=== PATIENT | male | born 1965 | race Caucasian/White ===

== ENCOUNTER → 2021-07-06 | Outpatient (CLI) | payer OTHER ==
--- NOTE | 2021-07-06 13:00 | KCIC ---
Examination: 2 view of the orbits HISTORY: History of previous metal COMPARISON: None available Findings/ impression: No evidence of metallic density in the bilateral orbital region. Electronically signed by: Beck Bruce MD (07/06/2021 12:57 PM) [id number]
--- NOTE | 2021-07-06 14:22 | KCIC ---
Examination: MRI of the left shoulder without contrast HISTORY: History of left shoulder pain COMPARISON: None available TECHNIQUE: Multiplanar, multisequence MR imaging of the left shoulder without contrast FINDINGS: The long head of the biceps tendon within the bicipital groove. The attachment of the long head the b iceps tendon to the superior labral anchor grossly appears intact. Moderate amount of fluid identifie d in the biceps tendon sheath .The attachment of the subscapularis tendon grossly appears intact. Mod erate increased signal identified in the signal identified in the supraspinatus, infraspinatus tendo n likely tendinosis. The muscle bulk grossly appears unremarkable. No evidence of full-thickness rota tor cuff tear. Attenuated appearance of the labrum with diffuse increased signal likely diffuse tear of the labrum. There is severe joint space loss likely degenerative changes. Moderate degenerative changes identifie d acromioclavicular joint. Acromion is type II. There is obscuration of fat in the rotator interval. Moderate size osteophyte formation inferior aspe ct of the humerus head. Complete cartilage loss identified in the glenohumeral joint. IMPRESSION: 1. Moderate tendinosis of the rotator cuff. 2. Severe degenerative changes glenohumeral joint, acromioclavicular joint. 3. Attenuated appearance of the labrum with diffuse increased signal likely diffuse tear of the labr um. 4. Obscuration of fat in the rotator interval. Correlate for adhesive capsulitis. 5. Fluid identified in the biceps tendon sheath likely tenosynovitis. Electronically signed by: Beck Bruce MD (07/06/2021 2:20 PM) [id number]
== END ==
LOC: KCIC MRI 12:22
PROVIDERS: ATTEND Physician Assistant
DX: S46.012A Strain of muscle(s) and tendon(s) of the rotator cuff of left shoulder, initial encounter (principal); M19.012 Primary osteoarthritis, left shoulder; M25.712 Osteophyte, left shoulder; X58.XXXA Exposure to other specified factors, initial encounter; Y93.89 Activity, other specified; Y92.89 Other specified places as the place of occurrence of the external cause; Y99.8 Other external cause status
CPT/HCPCS: 70030; 73221

== ENCOUNTER → 2021-08-22 | Outpatient (CLI) | payer OTHER ==
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
== END ==
LOC: KCIC MRI 09:32
PROVIDERS: ATTEND Physician Assistant
DX: M47.22 Other spondylosis with radiculopathy, cervical region (principal); M48.02 Spinal stenosis, cervical region; M25.78 Osteophyte, vertebrae; M48.8X2 Other specified spondylopathies, cervical region; R60.0 Localized edema; M50.30 Other cervical disc degeneration, unspecified cervical region
CPT/HCPCS: 72141